=== PATIENT | male | born 1965 | race Caucasian/White ===

== ENCOUNTER → 2022-06-26 | Outpatient (CLI) | payer SELFPAY | END | disposition home or self-care (01) | LOC: LAB 17:45 → LAB SHORT 17:45 | DX: N39.0 Urinary tract infection, site not specified (principal) | CPT/HCPCS: 87086 ==

== ENCOUNTER → 2022-08-16 | Outpatient (CLI) | payer OTHER ==
[2022-08-16 15:39] LABS: Protein, Urine Quantitative 142.1 mg/dL (0.0-11.9)
== END | disposition home or self-care (01) ==
LOC: LAB 05:40 → LAB SHORT 05:40
PROVIDERS: Nurse Practitioner Family
DX: N18.9 Chronic kidney disease, unspecified (principal)
CPT/HCPCS: 81050; 84156

== ENCOUNTER 2022-10-17 09:12 | Day surgery (SDC) | payer OTHER ==
[~2022-10-17] VITALS: Ht 172.7 cm; Wt 71.1 kg
[~2022-10-17 09:12] MED LIST: CELEXA40 M1 PO; LISI20 PO; OMEP20ER PO; TAMS.4ER PO
--- NOTE | 2022-10-17 09:30 | NUR ---
History, Chart, Medications and Allergies reviewed before start of procedure. PT REPORTS VOMITING SINCE STARTED TAKING ADDITIONAL PREP AT 3 AM THIS MORNING. REPORTS PREP IS YELLOW BUT WITHOUT SOLIDS. PT C/O NAUSEA AND REPORTS VOMITIED ABOUT 10 MINUTES PRIOR TO COMING INTO DAY SURGERY.
[2022-10-17 09:41] VITALS: BP 184/110
[2022-10-17 09:45] VITALS: BP 187/107
[2022-10-17 09:49] VITALS: BP 186/109
--- NOTE | 2022-10-17 09:50 | NUR ---
DR. LUJAN TALKED WITH PATIENT AND CANCELLED PT PROCEDURE DUE TO BLOOD PRESSURE BEING TO ELEVATED. ORDERS FOR ZOFRAN ORAL - PT DRESSED AND WAITING FOR MEDICATION.
--- NOTE | 2022-10-17 10:06 | NUR ---
PT GIVEN ZOFRAN 4MG PO. PT INSTRUCTED TO KEEP HIS FOLLOW UP. PT AMB OUT OF DEPARTMENT WITH HIS RIDE. NO ACUTE DISTRESS.
== END 2022-10-17 10:08 | disposition home or self-care (01) ==
LOC: ORSCMMR 09:12 → ORD 10:00 → ORSCMMR 10:00
DX: R19.5 Other fecal abnormalities (principal); Z53.9 Procedure and treatment not carried out, unspecified reason
CPT/HCPCS: A9270; J7120

== ENCOUNTER 2022-10-31 11:34 | Inpatient (IN) | payer OTHER ==
[~2022-10-31] VITALS: Ht 170.2 cm; Wt 64.5 kg
[2022-10-31 12:47] LABS: Source, Urine Clean Catch
[2022-10-31 12:54] LABS: Appearance, Urine Clear (Clear); Bilirubin, Urine Neg (Neg); Blood, Urine 2+ (Neg); Color, Urine Yellow (P-Yellow); Glucose Qualitative, Urine Neg (Neg); Ketones, Urine 1+ (Neg); Leukocyte Esterase, Urine 1+ (Neg); Nitrite, Urine Pos (Neg); Protein, Urine 3+ (Neg); Urobilinogen, Urine NORM (Normal)
[2022-10-31 13:08] LABS: BASOPHILS ABSOLUTE AUTO 0.02 K/mm3 (0.00-0.23); BASOPHILS PERCENT AUTO 0 % (0-2); EOSINOPHILS ABSOLUTE AUTO 0.06 K/mm3 (0.00-0.68); EOSINOPHILS PERCENT AUTO 1 % (0-6); Hemoglobin 13.3 g/dL (13.5-17.5); IMMATURE GRAN ABSOLUTE AUTO 0.02 K/mm3 (0.00-0.10); IMMATURE GRAN PERCENT AUTO 0 % (0-1); LYMPHOCYTES ABSOLUTE AUTO 0.94 K/mm3 (0.84-5.20); LYMPHOCYTES PERCENT AUTO 18 % (21-46); MONOCYTES ABSOLUTE AUTO 0.59 K/mm3 (0.16-1.47); MONOCYTES PERCENT AUTO 12 % (4-13); Mean Corpuscular HGB 34.5 pg (26.0-34.0); Mean Corpuscular Volume 99 fL (80-100); NEUTROPHILS ABSOLUTE AUTO 3.51 K/mm3 (1.96-9.15); NEUTROPHILS PERCENT AUTO 68 % (41-73); NRBC ABSOLUTE 0.03 K/mm3 (0.00-0.02); NRBC Auto 0.6 /100 WBC (0.0-0.2); Platelet Count 186 K/mm3 (150-400); RDW Coefficient Variation 12.8 % (11.7-14.2); RDW Standard Deviation 46.5 fL (35.1-46.3); Red Blood Cell Count 3.85 M/mm3 (4.30-5.90); White Blood Cell Count 5.14 K/mm3 (4.00-11.30)
[2022-10-31 13:34] LABS: Albumin, Blood 3.4 g/dL (3.4-5.0); Albumin/Globulin Ratio 0.9 (0.8-1.8); Bilirubin, Total 0.7 mg/dL (0.1-1.0); Bun/Creatinine Ratio 14.4 (12.0-20.0); Calcium, Blood 9.5 mg/dL (8.5-10.1); Creatinine, Blood 1.25 mg/dL (0.60-1.20); Globulin, Blood 3.6 g/dL (2.2-4.0); Potassium, Blood 4.2 mmol/L (3.5-5.5)
[2022-10-31 13:43] LABS: Bacteria Mod /hpf; Squamous Epithelial Cells Rare /hpf (Few)
[2022-10-31] MEDS ORDERED: BUPROPION XL150 M1 (16:46)
[2022-10-31] MEDS ORDERED: PANTOPRAZOLE SO40 M2 PO (16:47)
[2022-10-31 18:35] VITALS: BP 166/98
[2022-10-31 19:40] VITALS: BP 162/108
--- NOTE | 2022-11-01 03:48 | NUR ---
PT ARRIVED ON UNIT JUST BEFORE SHIFT CHANGE. ADMISSION PROCESS COMPLETED AROUND ~2100. PT WAS EXPERIENCING N/V EARLY THIS SHIFT WHICH WAS NOT COMPLETELY ALLEVIATED WITH PRN ZOFRAN BUT SEEMS TO BE WELL MANAGED VIA REGLAN. ADMINISTERED ONCE LAST NIGHT SINCE WHICH TIME PT HAS BEEN RESTING IN BED. PT REPORTED ONLY VERY MILD PAIN ASSOCIATED AND REFUSED PRN PAIN MEDICATION. SKIN ASSESSMENT UNREMARKABLE OUTSIDE OF OLD WELL HEALED SCARS. INDEPENDENT WITHIN ROOM. AOX4, PLEASANT, COOPERATIVE WITH CARE. BED LOCKED IN LOWEST POSITION. CALL LIGHT LEFT WITHIN REACH.
[2022-11-01 05:16] LABS: BASOPHILS ABSOLUTE AUTO 0.01 K/mm3 (0.00-0.23); BASOPHILS PERCENT AUTO 0 % (0-2); EOSINOPHILS ABSOLUTE AUTO 0.06 K/mm3 (0.00-0.68); EOSINOPHILS PERCENT AUTO 2 % (0-6); Hematocrit 34.8 % (37.0-53.0); Hemoglobin 12.3 g/dL (13.5-17.5); IMMATURE GRAN ABSOLUTE AUTO 0.02 K/mm3 (0.00-0.10); IMMATURE GRAN PERCENT AUTO 1 % (0-1); LYMPHOCYTES ABSOLUTE AUTO 0.61 K/mm3 (0.84-5.20); LYMPHOCYTES PERCENT AUTO 15 % (21-46); MONOCYTES ABSOLUTE AUTO 0.43 K/mm3 (0.16-1.47); MONOCYTES PERCENT AUTO 11 % (4-13); Mean Corpuscular HGB 34.7 pg (26.0-34.0); Mean Corpuscular HGB Conc 35.3 g/dL (31.5-36.5); Mean Corpuscular Volume 98 fL (80-100); Mean Platelet Volume 9.8 fL (9.1-12.4); NEUTROPHILS ABSOLUTE AUTO 2.88 K/mm3 (1.96-9.15); NEUTROPHILS PERCENT AUTO 72 % (41-73); Platelet Count 164 K/mm3 (150-400); RDW Coefficient Variation 12.6 % (11.7-14.2); RDW Standard Deviation 45.6 fL (35.1-46.3); Red Blood Cell Count 3.54 M/mm3 (4.30-5.90); White Blood Cell Count 4.01 K/mm3 (4.00-11.30)
[2022-11-01 05:36] VITALS: BP 168/104
[2022-11-01 05:51] LABS: Albumin, Blood 3.1 g/dL (3.4-5.0); Bilirubin, Total 0.8 mg/dL (0.1-1.0); Bun/Creatinine Ratio 14.8 (12.0-20.0); Calcium, Blood 8.8 mg/dL (8.5-10.1); Creatinine, Blood 1.22 mg/dL (0.60-1.20); Globulin, Blood 3.2 g/dL (2.2-4.0); Magnesium, Blood 1.2 mg/dL (1.6-2.4); Total Protein, Blood 6.3 g/dL (6.4-8.2)
[2022-11-01 07:19] VITALS: BP 169/122
[2022-11-01 07:26] VITALS: BP 168/113
[2022-11-01 10:08] VITALS: BP 157/107
[2022-11-01 14:46] VITALS: BP 177/116
--- NOTE | 2022-11-01 16:20 | NUR ---
PT IS A/OX4, PLEASANT AND COOPERATIVE. THE PT IS UP IND IN HIS ROOM. THE PT APPEARS TO BE BREATHING EASILY ON RA AT THIS TIME. THE PT HAS MILD ALCOHOL WD SYMPTOMS. PT DENIED ANY ABD PAIN SO FAR THIS SHIFT. THE PT HAS HAD N/V TO THE DAY. PT WAS MEDICATED FOR N/V T/O THE DAY. PT HAS BEEN TRYING SMALL AMOUNTS ONLY OF ORAL INTAKE. CALL LIGHT IN REACH. WILL CONTINUE TO MONIOTR AND ASSESS FOR CHANGES
[2022-11-01 19:30] VITALS: BP 169/111
[2022-11-02] VITALS (84 sets, daily range): BP systolic 79–228; BP diastolic 66–164
[2022-11-02 04:35] LABS: BASOPHILS ABSOLUTE AUTO 0.01 K/mm3 (0.00-0.23); BASOPHILS PERCENT AUTO 0 % (0-2); EOSINOPHILS ABSOLUTE AUTO 0.08 K/mm3 (0.00-0.68); EOSINOPHILS PERCENT AUTO 2 % (0-6); Hematocrit 37.4 % (37.0-53.0); Hemoglobin 12.8 g/dL (13.5-17.5); IMMATURE GRAN ABSOLUTE AUTO 0.02 K/mm3 (0.00-0.10); IMMATURE GRAN PERCENT AUTO 0 % (0-1); LYMPHOCYTES ABSOLUTE AUTO 0.84 K/mm3 (0.84-5.20); LYMPHOCYTES PERCENT AUTO 17 % (21-46); MONOCYTES ABSOLUTE AUTO 0.51 K/mm3 (0.16-1.47); MONOCYTES PERCENT AUTO 10 % (4-13); Mean Corpuscular HGB 33.9 pg (26.0-34.0); Mean Corpuscular HGB Conc 34.2 g/dL (31.5-36.5); Mean Corpuscular Volume 99 fL (80-100); Mean Platelet Volume 10.5 fL (9.1-12.4); NEUTROPHILS PERCENT AUTO 71 % (41-73); Platelet Count 198 K/mm3 (150-400); RDW Coefficient Variation 12.5 % (11.7-14.2); RDW Standard Deviation 45.3 fL (35.1-46.3); Red Blood Cell Count 3.78 M/mm3 (4.30-5.90); White Blood Cell Count 4.96 K/mm3 (4.00-11.30)
[2022-11-02 05:35] LABS: Bun/Creatinine Ratio 12.1 (12.0-20.0); Calcium, Blood 8.8 mg/dL (8.5-10.1); Creatinine, Blood 1.32 mg/dL (0.60-1.20); Potassium, Blood 3.7 mmol/L (3.5-5.5)
--- NOTE | 2022-11-02 06:16 | NUR ---
ASSUMPTION OF CARE AND TRANSFER TO ICU RECEIVED REPORT IN ROOM FROM [facility] RN IN ROOM @0320. PT TRANSFERRED TO BED. SOMEWHAT GARBLED SPEECH BUT UNDERSTANDABLE. PT IMMEDIATELY TRYING TO GET OOB, SOMEWHAT CONFUSED. CIWA <10. VSS. PO LIBRIUM ADMINISTERED 0340. CIWA INCREASING. IV ATIVAN ADMINISTERED @0356 WITH MULTIPLE FOLLOWING IV DOSES DUE TO INCREASING CIWA SCORES. PT PLACED IN HUONG VEST. ATTEMPTING TO PUSH PAST STAFF. ALMOST FALLING OUT OF BED. HALLUCINATING. GARBLING SPEECH CONTINUES BUT REMAINS ON RA WITH SPO2 >95%. DR GIPSON CALLED, PRECEDEX ORDERED, PT TO ICU 08 @0515. REPORT TO SANTA WIGGINS.
--- NOTE | 2022-11-02 06:54 | NUR ---
FAMILY NOTIFIED PT'S AUNT EDD CALLED AND UPDATED ON EVENTS/TRACH. EDD ASKED ABOUT VISITORS AND HAD NO OTHER QUESTIONS.
--- NOTE | 2022-11-02 07:15 | NUR ---
0515- PATIENT TO ICU 8 FROM PCU, BEDSIDE REPORT FROM JAIR WIGGINS. PATIENT WAS AGITATED, TRYING TO GET OOB, UNABLE TO REDIRECT. UPON INITIAL ASSESSMENT PATIENTS SPEECH WAS GARBLED AND THROAT SWOLLEN. DR. GIPSON CALLED TO BEDSIDE. 0536- ETOMIDATE 20 MG GIVEN AND 50 MG ROCURONIUM GIVEN SEVERAL ATTEMPTS TO INTUBATE PATIENT BY DR. GIPSON AND ER DOCTOR. 0553- CRICOTHYROTOMY DONE BY DR. MALONE, 6.O ETT PLACED AND SECURED. VENT AC VC 16/450/5/100%. SUCTIONING BLOODY FROM PATIENTS MOUTH. PATIENT IS SEDATED ON PROPOFOL AND VERSED GIVEN. ATTEMPTS FOR ECKERT UNSUCCESFUL. REPORT GIVEN TO MERNA WIGGINS
--- NOTE | 2022-11-02 07:25 | NUR ---
CARE ASSUMPTION DURING BEDSIDE SHIFT REPORT WITH SANTA Hicks RN THE PT IS LYING IN BED ON THE VENTILATOR VIA TRACH. ET TUBE 6.0 15CM AT THE NECK, CONFIRMED W JUDAH RN. PT ON PROPOFOL GTT W SWB RESTRAINTS IN PLACE. PT HAS SMALL AMOUNT OF BLEEDING AT THE TRACH SITE. VENT 16/450/5.0 W 100% FIO2. SPO2 AT 100%. MONITOR SHOWING SINUS ARRYTHMIS 80'S-90'S. BP WNL AND STABLE.
--- NOTE | 2022-11-02 08:50 | NUR ---
UPDATE PT MOVED SELF TO HIS RIGHT PULLING TRACH TUBE OUT FROM 14CM TO 12.[address] HUTTON AND LESLIE RT NOTIFIED. PT ASSESSED AT BEDSIDE BY DR. HUTTON AND RT LESLIE. CHEST XRAY ORDERED. ENT BEING CONSULTED FOR TRACH.
--- NOTE | 2022-11-02 09:30 | NUR ---
UPDATE DR. GARDNER AT BEDSIDE ASSESSING THE PT.
[2022-11-02 10:45] LABS: Source, Urine Foley catheter
[2022-11-02 10:58] LABS: Appearance, Urine Hazy (Clear); Bilirubin, Urine Neg (Neg); Blood, Urine 5+ (Neg); Color, Urine Yellow (P-Yellow); Glucose Qualitative, Urine Neg (Neg); Ketones, Urine 3+ (Neg); Leukocyte Esterase, Urine 1+ (Neg); Nitrite, Urine Neg (Neg); Protein, Urine 4+ (Neg); Specific Gravity, Urine 1.015 (1.003-1.022); Urobilinogen, Urine NORM (Normal)
--- NOTE | 2022-11-02 11:11 | NUR ---
11/02/22 Ashanti Zurita PT CAME DIRECT FROM ICU [address] AGUILAR USED [facility] FOR TRANSPORT. ECKERT PLACED IN ICU PRIOR TO LEAVING, DRAINING CLEAR YELLOW URINE.
[2022-11-02 12:28] LABS: Amorphous Light (0-Heavy); Bacteria Rare /hpf; Mucus Mod (0-Heavy); Red Blood Cells, Urine TNTC /hpf (0-2); Squamous Epithelial Cells Rare /hpf (Few); Transitional Epithelial Cells Rare /hpf (0-Rare)
--- NOTE | 2022-11-02 12:35 | NUR ---
UPDATE PT BACK FROM OR. PT HAS 6.O SHILEY TRACH. PT PLACED BACK ON VENTILATOR. VSS. RT AT BEDSIDE.
--- NOTE | 2022-11-02 18:27 | NUR ---
review of pt in rounds. pt going to get trach today. family in this evening review of his care his anunt is his decision maker. Will follow closely for symptoms and plan of care. Will review with pharmacy may need eye drops and or more eye care. update primary care. for follow up with chronic disease team.
--- NOTE | 2022-11-02 18:38 | NUR ---
DAYSHIFT SUMMARY PT HAD NEW TRACH PLACED TODAY IN THE OR. PT'S ANGIOEDEMA WORSENED THIS AM HOWEVER THE SWELLING HAS DECREASED THE DAY HAS WENT ON. PT ON VENTILATOR THIS SHIFT 16/450/5.0 W 40% FIO2. PT ON PROPOFOL THIS SHIFT BUT PT DID REQUIRE SEVERAL DOSES OF VERSED HE BECAME VERY AGITATED W MOVEMENT. PT DID NOD HEAD YES AND NO TO QUESTIONS THIS AFTERNOON, PT DENYING ANY PAIN. BP WNL AND STABLE THIS SHIFT. MONITOR SHOWING SR IN THE 70'S-80'S THIS SHIFT HOWEVER WHEN THE PT RETURNED FROM THE OR HIS HR DROPPED TO 57 AND HE HAD SOME P WAVE CHANGES SO EKG WAS DONE SHOWING A NORMAL SINUS RYTHYM. PT HAD MINIMAL BLOOD OOZING FROM TRACH SITE FOLLOWING NEW TRACH PLACEMENT. PT REMAINS IN SWB RESTRAINTS THIS SHIFT. WILL REPORT TO ONCOMING RN.
--- NOTE | 2022-11-02 21:11 | NUR ---
ASSUMED CARE AT 1900 PATIENT IS SEDATED ON PROPOFOL, FENTANYL GIVEN FOR PAIN. PATIENT OPENS EYES, ABLE TO NOD YES TO PAIN, LOCALIZES TO PAIN. MOVEMENT IN ALL EXTREMITIES. 02 SATS 98% ON VENT AC VC 16/450/5/30%. SUCTIONING SMALL AMOUNT OF BLOODY SPUTUM FROM TRACH AND MOUTH. INNER CANNULA OF TRACH CLEANED AND REPLACED. MOUTH AND FACE REMAINS SWOLLEN. ECKERT PATENT AND DRAINING CLEAR YELLOW TO GRAVITY. PATIENT REPOSITIONED AND ORAL CARE DONE.
[2022-11-03] VITALS (91 sets, daily range): BP systolic 95–185; BP diastolic 64–130
[2022-11-03 03:46] LABS: BASOPHILS PERCENT AUTO 0 % (0-2); EOSINOPHILS PERCENT AUTO 0 % (0-6); Hematocrit 34.1 % (37.0-53.0); Hemoglobin 11.8 g/dL (13.5-17.5); IMMATURE GRAN ABSOLUTE AUTO 0.04 K/mm3 (0.00-0.10); IMMATURE GRAN PERCENT AUTO 1 % (0-1); LYMPHOCYTES ABSOLUTE AUTO 0.17 K/mm3 (0.84-5.20); LYMPHOCYTES PERCENT AUTO 2 % (21-46); MONOCYTES ABSOLUTE AUTO 0.47 K/mm3 (0.16-1.47); MONOCYTES PERCENT AUTO 6 % (4-13); Mean Corpuscular HGB 34.5 pg (26.0-34.0); Mean Corpuscular HGB Conc 34.6 g/dL (31.5-36.5); Mean Corpuscular Volume 100 fL (80-100); Mean Platelet Volume 10.3 fL (9.1-12.4); NEUTROPHILS ABSOLUTE AUTO 7.17 K/mm3 (1.96-9.15); NEUTROPHILS PERCENT AUTO 91 % (41-73); Platelet Count 187 K/mm3 (150-400); RDW Coefficient Variation 12.7 % (11.7-14.2); RDW Standard Deviation 46.6 fL (35.1-46.3); Red Blood Cell Count 3.42 M/mm3 (4.30-5.90); White Blood Cell Count 7.85 K/mm3 (4.00-11.30)
[2022-11-03 04:49] LABS: Bun/Creatinine Ratio 15.3 (12.0-20.0); Calcium, Blood 7.7 mg/dL (8.5-10.1); Creatinine, Blood 1.76 mg/dL (0.60-1.20); Potassium, Blood 4.1 mmol/L (3.5-5.5)
--- NOTE | 2022-11-03 05:50 | NUR ---
SHIFT SUMMARY PATIENT REMAINS SEDATED ON PROPOFOL WITH VERSED NEEDED. 02 SATS 99% ON VENT VIA TRACH, AC VC 16/450/5/30%. TACH CLEANED. HR SR 60, BP STABLE. ECKERT REMAINS PATENT AND DRAINING TO GRAVITY. BED BATH DONE. PATIENT FACE AND MOUTH REMAINS SWOLLEN.
--- NOTE | 2022-11-03 07:15 | NUR ---
CARE ASSUMPTION DURING BEDSIDE SHIFT REPORT WITH SANTA Hicks RN THE PT IS LYING IN BED WITH THE VENTILATOR ATTACHED TO HIS TRACH. PROPOFOL RUNNING AT 30. PT AWAKENS TO VOICE AND OPENS HIS EYES. MONITOR SHOWING SR IN THE 80'S. PT IN SWB RESTRAINTS. PT IN NO DISTRESS AT THIS TIME.
--- NOTE | 2022-11-03 09:39 | NUR ---
Spiritual Care Attempted. Pt. has a trach and displays evidence of frustration as he can't communicate other than respond no verbally. Pt. displayed evidence of wanting a nurse. When nurse Vimal arrived this missile pad mechanic excused himself.
--- NOTE | 2022-11-03 13:30 | NUR ---
UPDATE DR. MEAD NOTIFIED OF THE PT'S CHANGE IN ANXIETY, DIAPORESIS, AND HALLUCINATIONS, AND ELEVATED BP. PROVIDER ARMEN MAXWELL SET AND STATED THAT HIS BP SHOULD IMPROVED WITH MANAGEMENT OF WITHDRAWL SYMPTOMS.
--- NOTE | 2022-11-03 19:00 | NUR ---
DAYSHIFT SUMMARY PT WAS ABLE TO PASS SPONTANEOUS BREATHING TRIAL THIS AM SO SEDATION WAS DC'D AND HE WAS PLACED ON HEATED AEROSOLED O2 WHICH HE REMAINED ON ALL SHIFT. PT HAD LARGE AMOUNTS OF BLOODY SECRETION FROM TRACH THIS AM BUT CLEARED UP THE SHIFT WENT ON. MONITOR HAS SHOWING SR 60'S-80'S THIS SHIFT W NO ECTOPY. BP HAS TRENDED UP THIS SHIFT W SBP >160'S SO PROVIDER WAS CONTACTED AND PRN HYDRALAZINE WAS OREDED. PT AFEBRILE THIS SHIFT. AFTER THE PT WAS TAKEN OF SEDATION FOR A COUPLE HOURS HE BEGAN TO BECOME VERY RESTLESS, REPORTING VISUAL HALLUCINATIONS, AND BECOMING VERY DIAPHRETIC SO CIWA SET WAS ORDERED AND PRECEDX WAS STARTED THE PT CONTINUED TO ATTEMPT TO EXIT THE BED AND PULL AT TRACH. CIWAS REMAIN 11-15. NG TUBE PLACED THIS SHIFT AND TUBE FEEDING STARTED, TF CURRENTLY RUNNING AT 50ML/HR WHICH IS GOAL RATE. PRECEDEX RUNNING AT 0.7MCG/KG/HR. SPO2 >92% ON 26% FIO2. ECKERT CATHETER PATENT AND DRAINED 1200ML CLEAR YELLOW URINE THIS SHIFT. WILL REPORT TO ONCOMING RN.
[2022-11-04] VITALS (92 sets, daily range): BP systolic 106–181; BP diastolic 64–108
[2022-11-04 03:39] LABS: BASOPHILS ABSOLUTE AUTO 0.01 K/mm3 (0.00-0.23); BASOPHILS PERCENT AUTO 0 % (0-2); EOSINOPHILS PERCENT AUTO 0 % (0-6); Hematocrit 33.7 % (37.0-53.0); Hemoglobin 11.7 g/dL (13.5-17.5); IMMATURE GRAN ABSOLUTE AUTO 0.05 K/mm3 (0.00-0.10); IMMATURE GRAN PERCENT AUTO 1 % (0-1); LYMPHOCYTES ABSOLUTE AUTO 0.23 K/mm3 (0.84-5.20); LYMPHOCYTES PERCENT AUTO 3 % (21-46); MONOCYTES ABSOLUTE AUTO 0.52 K/mm3 (0.16-1.47); MONOCYTES PERCENT AUTO 7 % (4-13); Mean Corpuscular HGB 34.1 pg (26.0-34.0); Mean Corpuscular HGB Conc 34.7 g/dL (31.5-36.5); Mean Corpuscular Volume 98 fL (80-100); Mean Platelet Volume 10.6 fL (9.1-12.4); NEUTROPHILS ABSOLUTE AUTO 6.68 K/mm3 (1.96-9.15); NEUTROPHILS PERCENT AUTO 89 % (41-73); Platelet Count 172 K/mm3 (150-400); RDW Coefficient Variation 12.7 % (11.7-14.2); RDW Standard Deviation 45.8 fL (35.1-46.3); Red Blood Cell Count 3.43 M/mm3 (4.30-5.90); White Blood Cell Count 7.49 K/mm3 (4.00-11.30)
[2022-11-04 03:55] LABS: Calcium, Blood 7.9 mg/dL (8.5-10.1); Creatinine, Blood 1.39 mg/dL (0.60-1.20); Magnesium, Blood 1.9 mg/dL (1.6-2.4); Potassium, Blood 4.1 mmol/L (3.5-5.5)
--- NOTE | 2022-11-04 06:11 | NUR ---
SHIFT SUMMARY NO ACUTE EVENTS T/O NIGHT. PT ALERT AND FOLLOWING DIRECTIONS. DIFFICULT TO UNDERSTAND AT TIMES D/T TRACH. ANXIOUS AT TIMES BUT COOPERATIVE WITH CARE. TRACH COLLAR IN PLACE. FIO2 26%. SPO2 GREATER THEN 92%. VSS. HTN AT TIMES. PRN HTN MEDICATION GIVEN ONCE. SR RATE 60-70'S. PRECEDEX GTT INFUSING. SEE FLOWSHEET FOR TITRATIONS. CIWA 14-9 T/O NIGHT. NGT IN PLACE WITH TF AT GOAL. ECKERT PATENT AND DRAINING TO GRAVITY. CALL MADE TO HOSP REGARDING AM LABS. ORDER RECEIVED. WILL REPORT OFF TO ONCOMING RN.
--- NOTE | 2022-11-04 07:12 | NUR ---
CARE ASSUMPTION DURING BEDSIDE SHIFT REPORT WITH CHRISTINA WIGGINS THE PT IS SITTING UPRIGHT IN THE BED W A HUMIDIFIED TRACH COLLAR OVER HIS TRACH. PT AWOKE AND MAINTAINED EYE CONTACT WITH THIS RN I ENTERED THE ROOM. PT ON PRECEDEX GTT OF 0.7 FOR ETOH WITHDRAWLS. PT IS VISIBLY DIAPHORETIC BUT APPEARS CALM AT THIS TIME. MONITOR SHOWING SPO2 >94%. HR IS SINUS RYTHYM IN THE 60'S. HIS RN TOLD THE PT THAT I WOULD RETURN TO HIS ROOM SHORTLY AND THE PT NODDED HIS HEAD AND MOUTHED "OKAY". CARE ASSUMED AT THIS TIME.
--- NOTE | 2022-11-04 18:42 | NUR ---
DAYSHIFT SUMMARY THE PT HAS REMAINED ALERT AND ORIENTED THIS SHIFT BUT VERY ANXIOUS. PT ON PRECEDEX GTT TITRATED DOWN TO 0.2MCG/KG/HR. PT'S CIWA AT 7 DUE TO ANXIETY AND OCCASIONAL DIAPHORESIS THIS SHIFT. PT REPORTING PANICK ATTACKS AT BASELINE, DR. MEAD NOTIFIED AND HOME MEDS ORDERED. PT MAINTAINING SPO2 >94% ON TRACH COLLAR THIS SHIFT W 26% FIO2. PT'S SECRETIONS MINIMAL THIS SHIFT. PT'S BP BETTER THIS SHIFT BUT TRENDED UP MIDDAY AND WAS GIVEN HYDRALAZINE WITH GOOD RESULTS. PT AFEBRILE THIS SHIFT. PT ABLE TOTRANSFER SELF FROM BED TO CHAIR THIS SHIFT W MINIMAL ASSISTANCE AND A FWW WHERE HE SPENT MOST OF THE DAY UP IN THE CHAIR. PT REPORTING SOME MILD HALLUCINATIONS THIS AFTERNOON BUT WAS EASILY REDIRECTABLE. PT HAS TUBE FEEDINGS RUNNING AT GOAL RATE 50ML/HR.. PT CURRENTLY SITTING IN CHAIR WATCHING TV. PT DENYING ANY NEEDS AT THIS TIME. WILL REPORT TO BRITANY WIGGINS.
--- NOTE | 2022-11-04 21:32 | NUR ---
ASSUMED CARE ASSUMED CARE AT 1900. PT A/O X 3. CONFUSED AT TIMES STATING "I NEED TO TURN THE SPRINKLERS OFF", AND "I'M GOING TO ANSWER THE FRONT DOOR." EASILY REDIRECTABLE SITTING IN CHAIR WATCHING TV. FOLLOWING COMMANDS. TRACH IN PLACE WITH HHF FIO2 26%. SPO2 GREATER THAN 92%. VSS. SR RATE 60'S. PRECEDEX GTT INFUSING. SEE FLOWSHEET FOR TITRATIONS. ECKERT PATENT AND DRAINING TO GRAVITY. "MALVIN" CALLED, GIVEN UPDATE ON PT CONDITION AND POC. CALL LIGHT IN REACH.
[2022-11-05] VITALS (77 sets, daily range): BP systolic 110–181; BP diastolic 76–121
--- NOTE | 2022-11-05 01:39 | NUR ---
DOBHOFF DOBHOFF PLACED AND CHEST XRAY DONE. DR GIPSON CONFIRMED PLACEMENT. DOBHOFF AT 65 CM
--- NOTE | 2022-11-05 02:57 | NUR ---
UPDATE APPROX 0030 PT PULLED NGT. DOBHOFF PLACED, XRAY TAKEN AND PLACEMENT VERIFIED BY HOSP. TF RESTARTED. ORDER RECIEVED FOR RESTRAINTS.
[2022-11-05 03:43] LABS: BASOPHILS PERCENT AUTO 0 % (0-2); EOSINOPHILS PERCENT AUTO 0 % (0-6); Hematocrit 32.8 % (37.0-53.0); Hemoglobin 11.3 g/dL (13.5-17.5); IMMATURE GRAN ABSOLUTE AUTO 0.03 K/mm3 (0.00-0.10); IMMATURE GRAN PERCENT AUTO 1 % (0-1); LYMPHOCYTES ABSOLUTE AUTO 0.23 K/mm3 (0.84-5.20); LYMPHOCYTES PERCENT AUTO 4 % (21-46); MONOCYTES ABSOLUTE AUTO 0.67 K/mm3 (0.16-1.47); MONOCYTES PERCENT AUTO 10 % (4-13); Mean Corpuscular HGB 34.1 pg (26.0-34.0); Mean Corpuscular HGB Conc 34.5 g/dL (31.5-36.5); Mean Corpuscular Volume 99 fL (80-100); Mean Platelet Volume 10.3 fL (9.1-12.4); NEUTROPHILS ABSOLUTE AUTO 5.68 K/mm3 (1.96-9.15); NEUTROPHILS PERCENT AUTO 86 % (41-73); Platelet Count 189 K/mm3 (150-400); RDW Coefficient Variation 12.7 % (11.7-14.2); RDW Standard Deviation 46.1 fL (35.1-46.3); Red Blood Cell Count 3.31 M/mm3 (4.30-5.90); White Blood Cell Count 6.61 K/mm3 (4.00-11.30)
[2022-11-05 03:59] LABS: Bun/Creatinine Ratio 26.1 (12.0-20.0); Calcium, Blood 7.8 mg/dL (8.5-10.1); Creatinine, Blood 1.42 mg/dL (0.60-1.20); Potassium, Blood 3.8 mmol/L (3.5-5.5)
--- NOTE | 2022-11-05 06:46 | NUR ---
SHIFT SUMMARY NO ACUTE EVENTS T/O NIGHT. PT HALLUCINATING MORE THIS AM, SEEING CATS IN THE ROOM AND TALKING TO FRIEND "MALVIN" WHEN ONLY THIS RN IS IN ROOM. ATTEMPTED TO TITRATE PRECEDEX DOWN BUT PT BECAME MORE ANXIOUS AND TRYING TO LEAVE THE HOSPITAL. ABLE TO REDIRECT AND CALM PT. 3 DOSES OF LIBRIUM GIVEN THIS SHIFT. PT 2 PERSON ASSIST TO BSC/CHAIR. ECKERT PATENT AND DRAINING TO GRAVITY. PT HAD ONE BM THIS SHIFT. WILL REPORT OFF TO ONCOMING RN.
--- NOTE | 2022-11-05 10:35 | NUR ---
SHIFT ASSESSMENT BEDSIDE REPORT RECEIVED FROM PREVIOUS NURSE. INITIALLY PT ON LOW DOSE PRECEDEX AND SOFT RESTRAINTS. ATTEMPTED TO DC RESTRAINTS BUT PT PULLING AT DOBHOFF AND TRACH. PRECEDEX TITRATED OFF. PT NOW OUT OF RESTRAINTS. AMBULATED TO [facility] FOR BM. ALERT AND ORIENTED TO PERSON, PLACE & YEAR, FOLLOWING COMMANDS BUT CONTINUES TO HAVE MOMENTS OF CONFUSION. TRACH COLLAR IN PLACE c SATS >95%. DOBHOFF c TF @ GOAL. ECKERT CATHETER DC'D.
--- NOTE | 2022-11-05 11:39 | NUR ---
UPDATE PT REQUESTED TO GET BACK TO BED. SHORTLY AFTER, PT ATTEMPTING TO GET UP AND LEAVE. STATES "I'M GOING TO THE [place] TO CHECK ON THE CATS". REDIRECTABLE BUT PERSISTANT. CIWA <8. LOW DOSE PRECEDEX GTT RESTARTED. WILL MONITOR CLOSELY.
--- NOTE | 2022-11-05 18:42 | NUR ---
SHIFT SUMMARY PT REMAINS ALERT AND ORIENTED TO PERSON, PLACE AND YEAR WITH INTERMITTENT BOUTS OF MILD CONFUSION, SEEMS TO BE MORE RELATED TO ANXIETY AND WANTING TO GO HOME. ATTEMPTS TO GET OUT OF BED, REDIRECTABLE. PRECEDEX STOPPED THIS AFTERNOON, INITIATED PORTABLE CAMERA DUE TO IMPULSIVITY. BED ALARM ALSO ON, CALL LIGHT IN REACH. NO CHANGES TO TRACH, RT CLEANED THIS AM. O2 SATS >95%. CIWA <8, DID NOT MEDICATE FOR CIWA TODAY. MEDICATED X 1 FOR HTN. TF CONTINUES AT GOAL. MULTIPLE LOOSE STOOLS, ABLE TO AMBULATE TO BSC WITH ONE PERSON ASSIST.
--- NOTE | 2022-11-05 20:40 | NUR ---
ASSUMPTION OF CARE NOTE PT WATCHING TV AT BEGINNING OF SHIFT. HAVING SEVERAL COUGHING FITS, LITTLE SECRETION UPON SUCTIONING. CALLED RT TO CLEAN INNER CANNULA WHICH DID HELP TO RELIEVE COUGHING. PT ALERT AND ORIENTED X4 BUT DOES FORGET HIS LIMITATIONS. AVASURE IN ROOM TO REMIND PT TO CALL BEFORE GETTING UP. DOES NOT APPEAR TO BE HAVING ANY WITHDRAWAL SYMPTOMS AT THIS TIME. TRACH CONNECTED TO HIGH PERCY AT 6 LPM 26% FIO2. ALL OTHER VSS. TF RUNNING AT 50ML/HR.
--- NOTE | 2022-11-05 23:10 | NUR ---
UPDATE DOBHOFF TUBE HAS BEEN CLOGGED. UNABLE TO UNCLOG. DOBHOFF REMOVED. WAITING FOR ENT TO RE-EVALUATE TRACH TO DETERMINE IF PT WILL NEED ANOTHER DOBHOFF TOMORROW
[2022-11-06] VITALS (36 sets, daily range): BP systolic 102–157; BP diastolic 57–106
[2022-11-06 03:31] LABS: BASOPHILS PERCENT AUTO 0 % (0-2); EOSINOPHILS PERCENT AUTO 0 % (0-6); Hematocrit 33.5 % (37.0-53.0); Hemoglobin 11.6 g/dL (13.5-17.5); IMMATURE GRAN ABSOLUTE AUTO 0.03 K/mm3 (0.00-0.10); IMMATURE GRAN PERCENT AUTO 0 % (0-1); LYMPHOCYTES ABSOLUTE AUTO 0.37 K/mm3 (0.84-5.20); LYMPHOCYTES PERCENT AUTO 4 % (21-46); MONOCYTES ABSOLUTE AUTO 0.84 K/mm3 (0.16-1.47); MONOCYTES PERCENT AUTO 10 % (4-13); Mean Corpuscular HGB 34.1 pg (26.0-34.0); Mean Corpuscular HGB Conc 34.6 g/dL (31.5-36.5); Mean Corpuscular Volume 99 fL (80-100); NEUTROPHILS ABSOLUTE AUTO 7.14 K/mm3 (1.96-9.15); NEUTROPHILS PERCENT AUTO 85 % (41-73); Platelet Count 241 K/mm3 (150-400); RDW Coefficient Variation 12.6 % (11.7-14.2); RDW Standard Deviation 45.3 fL (35.1-46.3); White Blood Cell Count 8.38 K/mm3 (4.00-11.30)
[2022-11-06 03:42] LABS: Bun/Creatinine Ratio 23.4 (12.0-20.0); Creatinine, Blood 1.45 mg/dL (0.60-1.20); Phosphorus, Blood 2.5 mg/dL (2.5-4.9); Potassium, Blood 3.9 mmol/L (3.5-5.5)
--- NOTE | 2022-11-06 05:41 | NUR ---
SHIFT SUMMARY PT VERY RESTLESS OVERNIGHT. VERY ANXIOUS AND AGITATED. GAVE ATIVAN WITH NO RELIEF, LIBRIUM WITH LITTLE RELIEF. DID SCORE ON CIWA, BUT ONLY FOR ANXIETY AND SOME DELUSIONS. DO NOT BELIEVE PT IS ACTIVELY WITHDRAWING. HE IS ALERT AND ORIENTED X4, RESPECTFUL, BUT OFTEN FORGETS HIS LIMITATIONS. HE WILL TALK ABOUT WALKING INTO THE LIVING ROOM BUT WHEN RN ASKES IF HE KNOWS WHERE HE IS HE WILL SAY "[facility]". BELIEVE PT IS HAVING HOSPITAL ASSOCIATED DELERIUM. ATTEMPTED TO TAKE HIM IN WHEELCHAIR AROUND UNIT TO GET HIM OUT OF HIS ROOM TODAY. HE SAID HE REALLY ENJOYED IT. SET OFF BED ALARM AND AVASURE MULTIPLE TIMES TODAY AND BARELY SLEPT. WOULD ENCOURAGE SETTING A ROUTINE WITH PT DURING THE DAY AND REQUESTING NIGHTIME MEDS FOR SLEEP MOVING FORWARD. TRACH REMAINS IN PLACE, RECIEVING 6LPM AT 26% FIO2. MORE SECRETIONS THIS MORNING, BUT LUNGS SOUND CLEARER COMPARED TO BEGINNING OF SHIFT. HYDRALAZINE GIVEN X1 FOR HTN, WITH GOOD RESULT.
--- NOTE | 2022-11-06 11:19 | NUR ---
SHIFT ASSESSMENT/ UPDATE PT ALERT AND ORIENTED, FOLLOWING COMMANDS. AMBULATES WITH WALKER AND GAIT BELT TO BSC AND CHAIR. REMAINS IMPULSIVE. INITIALLY TRYING TO GET OUT OF BED WITHOUT CALLING FOR ASSISTANCE, STATES HE WANTS TO GO HOME. C/O DEPRESSION, MEDICATING WITH HOME MEDS. PRECEDEX TRIALED FOR A BRIEF TIME THIS AM BUT PT CONTINUES TO BE IMPULSIVE AND MORE CONFUSED SO TURNED OFF AT THIS TIME. THIS NURSE NOW STAYING IN ROOM WITH PT HE IS REDIRECTABLE. TOLERATING TRACH COLLAR WELL, SATS >95% EVEN WITH SUPPLEMENTAL O2 OFF DURING BARIUM STUDY. PT PASSED BARIUM STUDY, REGULAR DIET. DENIES PAIN OR SOB AFTER SWALLOWING. REMAINS ON VIDEO MONITORING DUE TO IMPULSIVE BEHAVIOR.
--- NOTE | 2022-11-06 14:45 | NUR ---
ASSUMED CARE: REPORT RECEIVED FROM KALYAN Arcos RN. ASSUMED CARE OF THIS PT AT APPROX 1435. ON ASSESSMENT, THE PT IS A&O TO SELF, FORGETFUL OF LOCATION & NEEDING FREQUENT REORIENTATION TO SURROUNDINGS & LIMITATIONS. ATTEMPTING TO GET OOB OR CHAIR FREQUENTLY. 1:1 SITTERLUDWIG, AT BEDSIDE FOR SAFETY PURPOSES & AVASURE HAS BEEN DISCONTINUED, THE PT IS NOT RESPONSIVE TO THE AVASURE CUES TO REMAIN SEATED. PT ON HUMIDIFIED TRACH COLLAR W/ O2 SATS > 95%. MONITOR SHOWS SR W/ HR 80s, BP STABLE. NO GI COMPLAINTS, PASSED BARRIUM SWALLOW EVAL, TOLERATING PO INTAKE WELL. VOIDS URINE W/O DIFFICULTY USING URINAL. SKIN OVERALL INTACT, SMALL AMNT OF DRIED SANGUINOUS DRAINAGE NOTED ON DRAIN SPONGE AROUND TRACH SITE. WILL CONTINUE TO MONITOR & UPDATE NEEDED.
--- NOTE | 2022-11-06 18:19 | NUR ---
SHIFT SUMMARY: NO ACUTE CHANGES SINCE ASSUMPTION OF CARE. THE PT REMAINS IMPULSIVE, REQUIRING FREQUENT REORIENTATION TO LOCATION & REMINDERS TO NOT GET UP OR PULL AT LINES/ TUBES. 1:1 SITTER AT BEDSIDE. PT ON HUMIDIFIED TRACH COLLAR W/ 25% FIO2 & O2 SATS > 95%. MONITOR SHOWS SR W/ HR 80-90s, HTN INCREASED W/ INCREASING RESTLESSNESS THIS EVENING, IMPROVED W/ REST. PT HAS NO GI COMPLAINTS, IS TOLERATING PO INTAKE WELL. VOIDS URINE W/O DIFFICULTY USING URINAL. SKIN CONDITION OVERALL INTACT, PT REPOSITIONS HIMSELF PRN COMFORT. WILL CONTINUE TO MONITOR & REPORT OFF TO ONCOMING RN.
--- NOTE | 2022-11-06 19:05 | NUR ---
ASSUMED CARE PATIENT IN CHAIR, NO FAMILY AT BEDSIDE. SITTER AT BEDSIDE. VS STABLE, ON TRACH COLLAR. PATIENT A&O X4.
[2022-11-07] VITALS (18 sets, daily range): BP systolic 112–153; BP diastolic 64–102
--- NOTE | 2022-11-07 01:05 | NUR ---
ASSUMED CARE I ASSUMED CARE AT 2345.
[2022-11-07 03:36] LABS: BASOPHILS ABSOLUTE AUTO 0.01 K/mm3 (0.00-0.23); BASOPHILS PERCENT AUTO 0 % (0-2); EOSINOPHILS ABSOLUTE AUTO 0.08 K/mm3 (0.00-0.68); EOSINOPHILS PERCENT AUTO 2 % (0-6); Hematocrit 30.9 % (37.0-53.0); Hemoglobin 10.6 g/dL (13.5-17.5); IMMATURE GRAN ABSOLUTE AUTO 0.03 K/mm3 (0.00-0.10); IMMATURE GRAN PERCENT AUTO 1 % (0-1); LYMPHOCYTES ABSOLUTE AUTO 1.04 K/mm3 (0.84-5.20); LYMPHOCYTES PERCENT AUTO 23 % (21-46); MONOCYTES ABSOLUTE AUTO 0.65 K/mm3 (0.16-1.47); MONOCYTES PERCENT AUTO 14 % (4-13); Mean Corpuscular HGB 34.2 pg (26.0-34.0); Mean Corpuscular HGB Conc 34.3 g/dL (31.5-36.5); Mean Corpuscular Volume 100 fL (80-100); Mean Platelet Volume 9.7 fL (9.1-12.4); NEUTROPHILS ABSOLUTE AUTO 2.71 K/mm3 (1.96-9.15); NEUTROPHILS PERCENT AUTO 60 % (41-73); Platelet Count 226 K/mm3 (150-400); RDW Coefficient Variation 12.7 % (11.7-14.2); RDW Standard Deviation 45.6 fL (35.1-46.3); White Blood Cell Count 4.52 K/mm3 (4.00-11.30)
[2022-11-07 03:55] LABS: Albumin, Blood 2.7 g/dL (3.4-5.0); Albumin/Globulin Ratio 0.9 (0.8-1.8); Bilirubin, Total 0.4 mg/dL (0.1-1.0); Bun/Creatinine Ratio 18.7 (12.0-20.0); Calcium, Blood 7.8 mg/dL (8.5-10.1); Creatinine, Blood 1.87 mg/dL (0.60-1.20); Globulin, Blood 2.9 g/dL (2.2-4.0); Magnesium, Blood 1.7 mg/dL (1.6-2.4); Phosphorus, Blood 3.1 mg/dL (2.5-4.9); Potassium, Blood 3.5 mmol/L (3.5-5.5); Total Protein, Blood 5.6 g/dL (6.4-8.2)
--- NOTE | 2022-11-07 05:42 | NUR ---
SHIFT SUMMARY NO ACUTE EVENTS T/O NIGHT. PT DID HAVE ONE EPISODE OF ANXIETY AND AGITATION THAT HE COULD NOT BE REDIRECTED FROM. PT PULLING AT TRACH SITE, PULLING OFF HHF TUBE, AND PUSHING AWAY THIS RN WHEN TRYING TO REATTACH IT. MEDICATED WITH ATIVAN. PT ABLE TO CALM DOWN, AND MOUTHED "I'M SORRY". THIS RN AT BEDSIDE GAVE REASSURANCE AND PT REORIENTED. PT ASKING "ARE YOU REAL? OR IMAGINARY?". WHEN ASKED WHERE HE WAS, PT RESPONDED WITH "I'M AT MY HOUSE". RT IN ROOM TO MOVE HHF TO OTHER SIDE OF BED SO PT COULD LAY ON HIS RIGHT SIDE. PT ABLE TO SLEEP COMFORTABLY FOR A FEW HOURS AFTER. VSS. SR RATE 60'S. 1:1 SITTER AT BEDSIDE. PT 1-2 ASSIST WHEN UP. CONT OF URINE. WILL REPORT OFF TO ONCOMING RN.
--- NOTE | 2022-11-07 07:10 | NUR ---
CARE ASSUMPTION DURING BEDSIDE SHIFT REPORT Josselyn VASQUEZ RN THE PT IS SITTING UPRIGHT IN THE RECLINER AWAKE AND ALERT. PT NODDING HIS HEAD TO ANSWER YES OR NO QUESTIONS. PT HAS HUMIDIFIED TRACH COLLAR OVER TRACH W SPO2 >92%. PT DENYING ANY FURTHER NEEDS AT THIS TIME.
--- NOTE | 2022-11-07 14:00 | NUR ---
UPDATE DR. BELCHER AT BEDSIDE ASSISTED BY RT , PT'S TRACHEOSTOMY CHANGED TO 6.0 SHILEY CUFFLESSTRACH. FENESTRATED INNER CANNULA PLACED BY RT. PT TOLERATED PROCEDURE WELL. HUMIDIFIED T-PIECE IN PLACE.
--- NOTE | 2022-11-07 18:16 | NUR ---
DAYSHIFT SUMMARY THE PT BEGAN THE SHIFT ALERT BUT STILL BELIVING AT TIMES THAT HE WAS AT HIS HOUSE AND REPORTING THAT HE COULD NOT TELL IF HE WAS HALLUCINATING OR IF THE STAFF WAS REAL. THE PT HAS CLEARED UP THE DAY WENT ON AND HAS BEEN ALERT AND ORIENTED THIS AFTERNOON SHOWING NO CONFUSED OR IMPULSIVE BEHAVIOURS. PT HAD HIS TRACHEOSTOMY CHANGED THIS SHIFT TO A CUFFLESS FENESTRATED TRACH AND WE PLACED THE CAP ON HIS TRACH AT 1600. THE PT HAS REMAINED ON RM AIR SINCE BEING CAPPED W SPO2 >94% AND DENYING ANY SOB. PT HAD LARGE AMOUNTS OF SECRETIONS AFTER HIS TRACH WAS CHANGED BUT AFTER THOSE WERE CLEARED HE'S HAD NO COUGHING OR SECRETIONS SINCE THEN. PT BP MODERATELY ELEVATED THIS SHIFT W SBP IN THE 150'S. MONITOR HAS SHOWN SR IN THE 60'S THIS SHIFT. PT AFEBRILE. PT VOIDING WELL THIS SHIFT AND HAD ONE BM THIS SHIFT. PT WORKED W PT THIS SHIFT AND WAS ABLE TO AMBULATE W SBA AROUND THE ROOM. THE PT HAS DENIED ANY PAIN OR NAUSEA THIS SHIFT. PT EATING GOOD PORTION OF HIS MEALS THIS SHIFT. PT CURRENTLY SITTING UPRIGHT IN BED EATING HIS DINNER WATCHING TV ON RM AIR. WILL REPORT TO ONCOMING RN.
--- NOTE | 2022-11-07 20:00 | NUR ---
ASSUMED CARE OF PT AT 1900. REPORT RECEIVED IN ROOM. PT PRESENTS IN BED. SITTING UP AND WATCHING A MOVIE ON LAPTOP. PT PARTICIPATES IN BEDSIDE REPORT. PT ALERT AND ORIENTED. PLEASANT AND COOPERATIVE WITH CHARE AND ASSESSMENT. DENIES PAIN OR DYSPNEA. WILL REVIEW CHART AND PLAN OF CARE FOR THIS PT.
[2022-11-08] VITALS (20 sets, daily range): BP systolic 117–179; BP diastolic 65–106
--- NOTE | 2022-11-08 00:41 | NUR ---
PT AWAKENS AND NOTICED THAT THE CLOCK WAS MIDNIGHT. HE THUOGHT THAT IT WAS PM AND GOT OUT OF BED. STATED THAT HE HAD A LOT TO DO AND THOUGHT IT WAS NOON AND THAT HE HAD SLEPT IN. REORIENTED PT TO PROPER TIME. BACK IN BED. BED ALARM TURNED ON FOR PT'S SAFETY.
[2022-11-08 03:37] LABS: BASOPHILS PERCENT AUTO 0 % (0-2); EOSINOPHILS ABSOLUTE AUTO 0.14 K/mm3 (0.00-0.68); EOSINOPHILS PERCENT AUTO 3 % (0-6); Hematocrit 30.7 % (37.0-53.0); Hemoglobin 10.6 g/dL (13.5-17.5); IMMATURE GRAN ABSOLUTE AUTO 0.04 K/mm3 (0.00-0.10); IMMATURE GRAN PERCENT AUTO 1 % (0-1); LYMPHOCYTES ABSOLUTE AUTO 1.19 K/mm3 (0.84-5.20); LYMPHOCYTES PERCENT AUTO 24 % (21-46); MONOCYTES ABSOLUTE AUTO 0.86 K/mm3 (0.16-1.47); MONOCYTES PERCENT AUTO 18 % (4-13); Mean Corpuscular HGB 34.3 pg (26.0-34.0); Mean Corpuscular HGB Conc 34.5 g/dL (31.5-36.5); Mean Corpuscular Volume 99 fL (80-100); Mean Platelet Volume 9.7 fL (9.1-12.4); NEUTROPHILS ABSOLUTE AUTO 2.67 K/mm3 (1.96-9.15); NEUTROPHILS PERCENT AUTO 54 % (41-73); Platelet Count 237 K/mm3 (150-400); RDW Coefficient Variation 12.4 % (11.7-14.2); RDW Standard Deviation 45.3 fL (35.1-46.3); Red Blood Cell Count 3.09 M/mm3 (4.30-5.90)
[2022-11-08 04:00] LABS: Albumin, Blood 2.6 g/dL (3.4-5.0); Anion Gap 8 mmol/L (6-16); Blood Urea Nitrogen 29 mg/dL (8-24); Bun/Creatinine Ratio 18.5 (12.0-20.0); CO2, Blood 25 mmol/L (21-32); Calcium, Blood 8.3 mg/dL (8.5-10.1); Chloride, Blood 109 mmol/L (98-108); Creatinine, Blood 1.57 mg/dL (0.60-1.20); Glomerular Filtration Rate 51 (60-); Glucose, Blood 98 mg/dL (70-99); Potassium, Blood 3.5 mmol/L (3.5-5.5); Sodium, Blood 142 mmol/L (136-145)
--- NOTE | 2022-11-08 06:49 | NUR ---
PT HAS MADE SEVERAL ATTEMPTS TO GET OUT OF BED WITHOUT ASSIST. PT REDIRECTABLE. DENIES PAIN OR COMPLAINTS OF DYSPNEA. DR QUEVEDO HAS COME IN TO SEE PT THIS MORNING. ORDERS RECEIVED. WILL CONTINUE TO MONITOR PT, AND WILL REPORT OFF TO ONCOMING RN.
--- NOTE | 2022-11-08 07:27 | NUR ---
ASSUMED CARE OF PT AT 0715 BEDSIDE REPORT RECIEVED FROM ROSALIE GARCIA. PT IS SITTING UP IN BED USING HIS LAPTOP. HAD SOME CONFUSION LAST NOC GETTING OOB AND NOT KNOWING WHERE HE WAS. REDIRECTED EASILY. IS NOW A/O, AWAITING CHANGE OF ROOM ASSIGNMENT TO MEDICAL FLOOR. PIV X2 SL. NO FAMILY CURRENLTY AT BEDSIDE. TRACH IN PLACE, SITE C/D/I, CAPPED. PT VERBALIZING AND HAS DIET ORDERED. RN TO CONTINUE TO MONITOR
--- NOTE | 2022-11-08 11:10 | NUR ---
Pt. is awake and sitting up in a chair and welcomes my visit. The Pt. is pleasant. This lead handler had visited the Pt. on an earlier visit, and the Pt. recalled the visit. Facilitated a life review and considered matters of dante and belief. Pt. displays evidence of being engaged and aware of his physical recovery and verbalized making changes in his life. The Pt. verbalized an interest is connecting with [facility]. This lead handler was able to provide contact information for [facility] to the the Pt. Prayed with Pt. Pt. verbalized gratitude for the spiritual care visit.
--- NOTE | 2022-11-08 13:39 | NUR ---
pt up ambulating in unit. affect bright looks great!. review of eye care with nursing.
--- NOTE | 2022-11-08 19:18 | NUR ---
END OF SHIFT SUMMARY PT A/O THROUGHOUT SHIFT. OOB TO WALK MULTIPLE TIMES WITH BOTH PT AND RN. OOB TO CHAIR WATCHING MOVIES ON HIS LAPTOP. SR, BP STABLE. NEW ANTIHYPERTENSIVE STARTED TODAY, PT TOLERATED WELL. EATING 100% OF ALL MEALS, DENIES N/V. STANDBY ASSIST TO COMMODE TO VOID, 1 BM TODAY. TRACH SITE C/D/I, CAPPED. PT VERBALIZING WELL. ROOM AIR. PCU STATUS, AWAITING AVAILABLE BED. NO VISITORS TODAY, PT HAS BEEN COMMUNICATING WITH FRIENDS AND FAMILY VIA CELL PHONE. REPORT GIVEN TO ONCLIDIA WIGGINS.
[2022-11-09 00:26] VITALS: BP 151/80
[2022-11-09 03:45] VITALS: BP 159/93
[2022-11-09 04:21] LABS: Albumin, Blood 2.5 g/dL (3.4-5.0); Anion Gap 6 mmol/L (6-16); Blood Urea Nitrogen 23 mg/dL (8-24); CO2, Blood 28 mmol/L (21-32); Calcium, Blood 8.6 mg/dL (8.5-10.1); Chloride, Blood 108 mmol/L (98-108); Creatinine, Blood 1.35 mg/dL (0.60-1.20); Glomerular Filtration Rate 61 (60-); Glucose, Blood 107 mg/dL (70-99); Phosphorus, Blood 4.5 mg/dL (2.5-4.9); Potassium, Blood 3.4 mmol/L (3.5-5.5); Sodium, Blood 142 mmol/L (136-145)
--- NOTE | 2022-11-09 05:30 | NUR ---
SHIFT SUMMARY: Pt brought from ICU around 1999 last night, Vitals stable except hypertension with BP in the 170s. BP improved after seroquel given and pt settled, subsequent SBP readings below 160. He is on room air, trach capped, no respiratory distress, lungs sound diminished. Up independently in the room, voiding in bathroom.
[2022-11-09 07:42] VITALS: BP 146/98
--- NOTE | 2022-11-09 09:00 | NUR ---
AM NOTE: PATIENT ALERT AND ORIENTED X4. STRONG VOICE. DENIES N/T. UP IND IN ROOM. TRACH IN PLACE, CAPPED. NO SWALLOWING DIFFICULTIES. NO SWELLING OR ANGIOEDEMA NOTED. PATIENT STATES HE HAS A SMALL AMOUNT OF SORENESS ASSOCIATED WITH TRACH. TRACH CARE COMPLETED. ON ROOM AIR SATING ABOVE 95%. EVEN AND UNLABORED BREATHS. RR 18-20. LUNGS SOUNDING CLEAR AND DIMINISHED. PLAN FOR DR. MARCUS TO REMOVE TRACH THIS AFTERNOON. STOMA CARE INSTRUCTIONS TO BE PRINTED AND REVIEWED WITH PATIENT. TELE SHOWING SB-SR/ACCELERATED JUNCTIONAL. HR 50-70'S. BP STABLE. DENIES CHEST PAIN/PRESSURE/PALPITATIONS. NO SIGNS OF EDEMA. EDUCATION ON NIFIDIPINE REVIEWED WITH PATIENT. DENIES ABDOMINAL PAIN/NAUSEA. PATIENT EATING AND VOIDING WNL. NO SWALLOWING ISSUES NOTED. CALL LIGHT IN REACH. ABLE TO MAKE NEEDS KNOWN.
[2022-11-09 11:23] VITALS: BP 128/83
--- NOTE | 2022-11-09 11:44 | NUR ---
DR. MARCUS IN TO REMOVE TRACH. DRESSING IN PLACE. PLAN FOR POSSIBLE DC LATER THIS AFTERNOON. DR. QUEVEDO BY. THIS RN DISCUSSED POSSIBLE DISCHARGE, HOME HEALTH, AND ENT/ [facility] [employer]. THIS RN TO REVIEW STOMA CARE INSTRUCTIONS WITH PATIENT. AT BEDSIDE FOR VISIT WITH DR. MARCUS. PATIENT RESTING IN BED AT THIS TIME. AFTERNOON VITALS STABLE. CALL LIGHT IN REACH.
--- NOTE | 2022-11-09 13:22 | NUR ---
DR. MARCUS BY, PATIENT OKAY FROM [facility] STANDPOINT TO DISCHARGE. THIS RN PLACED CALL TO DR. CHITRA PUTNAM'S OFFICE TO SCHEDULE APPOINTMENT. APPOINTMENT SET FOR 11/15 AT 0800 FOR FOLLOW UP ON REMOVAL OF TRACH AND STOMA CARE.
[2022-11-09] MEDS ORDERED: ADALAT CC30 M1 PO (14:13)
[2022-11-09] MEDS ORDERED: QUET100 PO (14:14)
[2022-11-09] MEDS ORDERED: VISBIOME 112.51 EACH PO (14:14)
--- NOTE | 2022-11-09 15:02 | NUR ---
DISCHARGE NOTE: NO ACUTE CHANGES. STOMA CARE AND DRESSING CHANGE EDUCATION GONE OVER WITH PATIENT AND PATIENTS SPOUSE. PATIENT ABLE TO TEACH BACK AND DEMONSTRATE DRESSING CHANGE. WRITTEN INSTRUCTIONS AND SUPPLIES PROVIDED FOR PATIENT TO CHANGE DRESSINGS. IV'S REMOVED WNL. NEW MEDICATIONS AND MEDICATIONS TO STOP (LISINOPRIL) WERE DISCUSSED WITH PATIENT AND PATIENT ABLE TO TEACH BACK INSTRUCTIONS. FOLLOW UP APPOINTMENTS MADE FOR PATIENT BY THIS RN AT [facility]. [facility] HAS ALREADY CONTACTED PATIENT TO SET UP VISIT. PATIENT LEFT UNIT WITH ALL PERSONAL BELONGINGS AND DISCHARGE PACKET.
== END 2022-11-09 15:03 | disposition home or self-care (01) | DRG 3 ==
LOC: ER 11:34 → MEDS 17:54 → ICUE 17:54 → MEDS 18:32 → PCU 11-02 03:08 → ICUE 11-02 05:15 → PCU 11-08 20:36
PROVIDERS: Family Medicine; Internal Medicine Critical Care Medicine; Physician Assistant; Student in an Organized Health Care Education/Training Program; ADMIT Internal Medicine
PROC: 0B113Z4 Bypass Trachea to Cutaneous, Percutaneous Approach (ICD-10-PCS; 2022-11-02)
PROC: 0BB10ZZ Excision of Trachea, Open Approach (ICD-10-PCS; 2022-11-03)
PROC: 0BH17EZ Insertion of Endotracheal Airway into Trachea, Via Natural or Artificial Opening (ICD-10-PCS; 2022-11-03)
PROC: 0DH67UZ Insertion of Feeding Device into Stomach, Via Natural or Artificial Opening (ICD-10-PCS; 2022-11-04)
PROC: 5A1945Z Respiratory Ventilation, 24-96 Consecutive Hours (ICD-10-PCS; principal; 2022-11-09)
DX: K85.20 Alcohol induced acute pancreatitis without necrosis or infection (principal); J96.01 Acute respiratory failure with hypoxia; J95.09 Other tracheostomy complication; F10.239 Alcohol dependence with withdrawal, unspecified; N13.8 Other obstructive and reflux uropathy; N39.0 Urinary tract infection, site not specified; Q62.12 Congenital occlusion of ureterovesical orifice; F05 Delirium due to known physiological condition; T78.3XXA Angioneurotic edema, initial encounter; B95.4 Other streptococcus as the cause of diseases classified elsewhere; N40.1 Benign prostatic hyperplasia with lower urinary tract symptoms; I12.9 Hypertensive chronic kidney disease with stage 1 through stage 4 chronic kidney disease, or unspecified chronic kidney disease; N18.31 Chronic kidney disease, stage 3a; E78.5 Hyperlipidemia, unspecified; F32.9 Major depressive disorder, single episode, unspecified; F12.90 Cannabis use, unspecified, uncomplicated; K21.00 Gastro-esophageal reflux disease with esophagitis, without bleeding; K76.0 Fatty (change of) liver, not elsewhere classified; M25.552 Pain in left hip; F41.9 Anxiety disorder, unspecified; Z88.8 Allergy status to other drugs, medicaments and biological substances; Z79.811 Long term (current) use of aromatase inhibitors; Z79.899 Other long term (current) drug therapy; Z87.442 Personal history of urinary calculi; Z87.891 Personal history of nicotine dependence; Z98.890 Other specified postprocedural states; Z71.41 Alcohol abuse counseling and surveillance of alcoholic; Z99.81 Dependence on supplemental oxygen; Z78.1 Physical restraint status
CPT/HCPCS: 31500; 31720; 36415; 51703; 70498; 71045; 71046; 74230; 76705; 80048; 80053; 80069; 81001; 82330; 82947; 83690; 83735; 84100; 84484; 85025; 86162; 87086; 92610; 92611; 93005; 93010; 94002; 94003; 94760; 94762; 96365; 96375; 96376; 97110; 97112; 97116; 97162; 97530; 99285-25; A9270; J0360; J0696; J1100; J1200; J1650; J2060; J2250; J2370; J2405; J2704; J2765; J2920; J2930; J3010; J3411; J3470; J3475; J7030; J7050; J7060; Q9967

== ENCOUNTER → 2024-09-09 | Outpatient (CLI) | payer OTHER ==
[~2024-09-09] MED LIST changes: +ADALAT CC30 M1 PO; +BUPROPION XL150 M1; +PANTOPRAZOLE SO40 M2 PO; +QUET100 PO; +VISBIOME 112.51 EACH PO
== END | disposition home or self-care (01) ==
LOC: LAB 15:21 → LAB SHORT 15:21
DX: R30.0 Dysuria (principal)
CPT/HCPCS: 87086